=== PATIENT | male | born 1965 | race Caucasian/White ===

== ENCOUNTER 2021-03-31 22:52 | Emergency (ER) | payer MEDICAID ==
[~2021-03-31] VITALS: Ht 165.1 cm; Wt 63.5 kg
[2021-03-31 22:52] VITALS: BP 135/86
--- NOTE | 2021-03-31 22:52 | NUR ---
BIBA TO ER BED 3
--- NOTE | 2021-03-31 22:52 | NUR ---
BIBA FROM HOME, PT. VOMITING BLOOD FOR 1 HR. AFTER CHEMO TREATMENT. PT. RATES PAIN 0/10 AT THIS TIME. AAOX4. DENIES N/V/D; SKIN IS PINK/WARM/DRY; AAOX4 WITH EVEN AND STEADY GAIT; LUNGS CLEAR BL; HR EVEN AND REGULAR; PT DENIES ANY FEVER, CP, SOB, OR COUGH AT THIS TIME; VSS; PATIENT POSITIONED FOR COMFORT; HOB ELEVATED; BEDRAILS UP X2; BED DOWN. ER MADE AWARE OF PT STATUS. PMH: LUNG CANCER ALLERGIES: NONE
--- NOTE | 2021-03-31 23:01 | NUR ---
JOSEE BALL AT BEDSIDE FOR MEDICAL EXAMINATION.
--- NOTE | 2021-03-31 23:12 | NUR ---
XRAY AT BEDSIDE
--- NOTE | 2021-03-31 23:25 | NUR ---
LAB AT BEDSIDE
[2021-04-01] LABS: BASOPHILS # (AUTO) 0.1 K/uL (0.00-0.22); BASOPHILS % (AUTO) 0.7 % (0.0-2.0); EOSINOPHILS # (AUTO) 0.8 K/uL (0-0.4); EOSINOPHILS % (AUTO) 9.2 % (0.0-4.0); HEMATOCRIT 27.8 % (36-52); LYMPHOCYTES # (AUTO) 1.8 K/uL (2.0-11.5); LYMPHOCYTES % (AUTO) 21.4 % (20.5-51.1); MEAN CORPUSCULAR HEMOGLOBIN 29 pg (27-31); MEAN CORPUSCULAR HGB CONC 32 g/dL (33-37); MEAN CORPUSCULAR VOLUME 88.5 fL (80-94); MONOCYTES # (AUTO) 0.5 K/uL (0.8-1.0); NEUTROPHILS # (AUTO) 5.3 K/uL (1.8-7.7); NEUTROPHILS % (AUTO) 62.7 % (42.2-75.2); PLATELET COUNT (AUTO) 379 K/uL (140-450); RED BLOOD CELL COUNT(AUTO) 3.15 MIL/uL (4.20-6.10); WHITE BLOOD COUNT (AUTO) 8.5 K/uL (4.8-10.8)
[2021-04-01 00:08] LABS: ALBUMIN 2.7 g/dL (3.4-5.0); ANION GAP 11.5 (8-16); CARBON DIOXIDE 30.6 mmol/L (21-32); CREATININE 0.9 mg/dL (0.6-1.3); POTASSIUM 4.1 mmol/L (3.5-5.1); TOTAL BILIRUBIN 0.2 mg/dL (0.0-1.0)
[2021-04-01 00:17] LABS: PROTHROMBIN TIME 10.3 secs (10.8-13.4)
--- NOTE | 2021-04-01 00:35 | NUR ---
SAE VASQUEZ SAMPLE COLLECTED AND HANDED TO ANNABEL FROM LAB
--- NOTE | 2021-04-01 01:50 | NUR ---
PT. SP02 AT 89-90% ON ROOM AIR, PT. NOW ON NASAL CANNULA AT 1 L.
--- NOTE | 2021-04-01 02:00 | NUR ---
PT. SP02 AT 100% ON NASAL CANNULA, 1 L OF OXYGEN.
--- NOTE | 2021-04-01 02:28 | NUR ---
PT. AMBULATED TO BATHROOM WITH EVEN AND STEADY GAIT.
[2021-04-01] MEDS ORDERED: HYDROcodone/APAP 7.5/325 MG 1 TAB PO ONE (04:05)
--- NOTE | 2021-04-01 04:32 | NUR ---
PT. TO AWAIT FOR UNTIL 6AM TO PICK PT. UP.
--- NOTE | 2021-04-01 05:33 | NUR ---
PT. LAYING COMFORTABLY IN SUPINE POSITION. VOICES NO COMPLAINTS AT THIS TIME.
[2021-04-01 06:03] VITALS: BP 122/72
--- NOTE | 2021-04-01 06:03 | NUR ---
Patient discharged with v/s stable. Written and verbal after care instructions given and explained. Patient verbalized understanding. Ambulatory with steady gait. ID band removed. All questions addressed prior to discharge. Advised to follow up with PMD.
== END 2021-04-01 06:03 | disposition home or self-care (01) ==
LOC: MED 22:52
DX: R04.2 Hemoptysis (principal); Z20.822 Contact with and (suspected) exposure to COVID-19; C78.00 Secondary malignant neoplasm of unspecified lung; Z85.118 Personal history of other malignant neoplasm of bronchus and lung
CPT/HCPCS: 36415; 71045; 71270; 80053; 83880; 84484; 85025; 85610; 85730; 86886; 86900; 86901; 87426; 99285; Q9967

== ENCOUNTER 2021-04-09 17:16 | Emergency (ER) | payer MEDICAID ==
[~2021-04-09] VITALS: Ht 165.1 cm; Wt 59.1 kg
[2021-04-09 17:37] VITALS: BP 108/67
--- NOTE | 2021-04-09 17:41 | NUR ---
LOBBY. PT GIVEN URINE CUP
[2021-04-09 18:13] LABS: APPEARANCE,URINE CLEAR (CLEAR); BILIRUBIN,URINE 1+ (NEGATIVE); BLOOD, URINE 1+ (NEGATIVE); COLOR,URINE YELLOW (YELLOW); LEUKOCYTE ESTERASE ,URINE TRACE (NEGATIVE); NITRITE, URINE NEGATIVE (NEGATIVE); UGLUCOSE NEGATIVE (NEGATIVE)
[2021-04-09 18:26] LABS: WBC,URINE 0-5 /HPF (0-5)
[2021-04-09] MEDS ORDERED: cephALEXin 500 MG CAP PO ONE (19:05)
--- NOTE | 2021-04-09 19:17 | NUR ---
TO ER BED 3
--- NOTE | 2021-04-09 19:25 | NUR ---
PT. IS A 55 Y/O MALE THAT CAME INTO ED WITH C/O OF RECTAL PAIN. PT. STATES THAT THE RECTAL PAIN STARTED 3 DAYS AGO. WHEN ASKED TO DESCRIBE THE PAIN, PT. STATES "IT HURTS AROUND AND INSIDE. IT ALSO HURTS TO PEE AND I CAN'T DO BOTH AT THE SAME TIME." PT. STATES HE HAS TO WAIT FOR ONE OR THE OTHER WHEN HE URINATES OR HAS A BOWEL MOVEMENT. DENIES N/V/D, BUT ADMITS TO CONSTIPATION. SKIN IS PINK/WARM/DRY; AAOX4 WITH EVEN AND STEADY GAIT; HR EVEN AND REGULAR; PT DENIES ANY FEVER, CP, SOB, OR COUGH AT THIS TIME; VSS; PATIENT POSITIONED FOR COMFORT; HOB ELEVATED; BEDRAILS UP X2; BED DOWN. ER MADE AWARE OF PT STATUS. PMH: LUNG CANCER ALLERGIES: NKA
[2021-04-09] MEDS ORDERED: cefTRIAXone 1,000 MG in LIDOCAINE MPF 1% 2.1 ML IM ONE (20:20)
[2021-04-09] MEDS ORDERED: LIDO28CR2 TP (20:22)
[2021-04-09] MEDS ORDERED: DOXY-487 PO (20:22)
[2021-04-09] MEDS ORDERED: CEPH500C16 PO (20:22)
[2021-04-09] MEDS ORDERED: LIDOCAINE MPF 1% 5 ML ONE (20:24)
[2021-04-09] MEDS ORDERED: cefTRIAXone 1,000 MG VIAL ONE (20:24)
[2021-04-09 20:34] VITALS: BP 108/67
--- NOTE | 2021-04-09 20:34 | NUR ---
Patient discharged with v/s stable. Written and verbal after care instructions given and explained. Patient alert, oriented and verbalized understanding of instructions. Ambulatory with steady gait. All questions addressed prior to discharge. ID band removed. Patient advised to follow up with PMD. Rx of KEFLEX, DOXCYCLINE HYCLATE, PREPARATION H RAPID-LIDO CREAM given. Patient educated on indication of medication including possible reaction and side effects. Opportunity to ask questions provided and answered.
== END 2021-04-09 20:34 | disposition home or self-care (01) ==
LOC: MED 17:16
DX: K62.89 Other specified diseases of anus and rectum (principal); R10.9 Unspecified abdominal pain; Z85.118 Personal history of other malignant neoplasm of bronchus and lung; Z79.899 Other long term (current) drug therapy
CPT/HCPCS: 81001; 87086; 96372; 99283; J0696; J2001

== ENCOUNTER 2021-05-17 10:58 | Emergency (ER) | payer MEDICAID ==
[~2021-05-17] VITALS: Ht 165.1 cm; Wt 59.0 kg
[~2021-05-17 10:58] MED LIST: CEPH500C16 PO; DOXY-487 PO; LIDO28CR2 TP
[2021-05-17 11:05] VITALS: BP 117/76
--- NOTE | 2021-05-17 11:11 | NUR ---
PT AMBULATED TO ER BED 3 WITH A STEADY GAIT.
--- NOTE | 2021-05-17 11:24 | NUR ---
EMT AT PT BEDSIDE FOR EKG.
--- NOTE | 2021-05-17 11:26 | NUR ---
UNIX ANALYST AT PT BEDSIDE.
--- NOTE | 2021-05-17 11:32 | NUR ---
55 Y/O MALE C/O NON-PRODUCTIVE HACKING WET COUGH AND CHEST PAIN 03/29 DESCRIBES SHARP RADIATING TO HIS BACK X2DAYS. PT STATES FEELING SOB SINCE YESTERDAY. DENIES, FEVER, CHILLS. DENIES N/V. PMH: LUNG CANCER NKA
--- NOTE | 2021-05-17 12:28 | NUR ---
PT RESTING SUPINE, EYES CLOSED EASILY AROUSABLE, VSS, WILL CONTINUE TO MONITOR.
[2021-05-17] MEDS ORDERED: KETOROLAC 60 MG/2 ML VIAL IM ONE (12:40)
[2021-05-17] MEDS ORDERED: AZIT250T4 PO ×2 (14:01→17:34)
[2021-05-17] MEDS ORDERED: HYDR-5191 PO ×2 (14:01→17:34)
[2021-05-17 14:45] VITALS: BP 119/75
--- NOTE | 2021-05-17 14:45 | NUR ---
Patient discharged with v/s stable. Written and verbal after care instructions given [facility] and explained. Patient alert, oriented and verbalized understanding of instructions. Ambulatory with steady gait. All questions addressed prior to discharge. ID band removed. Patient advised to follow up with PMD. Rx of AZITHROMYCIN AND NORCO given. Patient educated on indication of medication including possible reaction and side effects. Opportunity to ask questions provided and answered.
== END 2021-05-17 14:45 | disposition home or self-care (01) ==
LOC: MED 10:58
DX: J18.9 Pneumonia, unspecified organism (principal); M54.9 Dorsalgia, unspecified; Z79.899 Other long term (current) drug therapy; Z85.118 Personal history of other malignant neoplasm of bronchus and lung
CPT/HCPCS: 71045; 93005; 96372; 99283; J1885; Q0092

== ENCOUNTER 2021-05-23 13:02 | Emergency (ER) | payer MEDICAID, OTHER ==
[~2021-05-23] VITALS: Ht 165.1 cm; Wt 59.0 kg
[~2021-05-23 13:02] MED LIST changes: +AZIT250T4 PO
[2021-05-23 13:17] VITALS: BP 126/67
--- NOTE | 2021-05-23 13:21 | NUR ---
PT TO AWAIT IN LOBBY
[2021-05-23 14:22] LABS: BASOPHILS % (AUTO) 0.3 % (0.0-2.0); EOSINOPHILS # (AUTO) 0.1 K/uL (0-0.4); EOSINOPHILS % (AUTO) 0.9 % (0.0-4.0); HEMATOCRIT 32.1 % (36-52); HEMOGLOBIN 10.4 g/dL (12.0-18.0); LYMPHOCYTES % (AUTO) 11.5 % (20.5-51.1); MEAN CORPUSCULAR HEMOGLOBIN 28 pg (27-31); MEAN CORPUSCULAR HGB CONC 33 g/dL (33-37); MEAN CORPUSCULAR VOLUME 87.4 fL (80-94); MONOCYTES # (AUTO) 0.6 K/uL (0.8-1.0); MONOCYTES % (AUTO) 7.2 % (1.7-9.3); NEUTROPHILS # (AUTO) 7.2 K/uL (1.8-7.7); NEUTROPHILS % (AUTO) 80.1 % (42.2-75.2); PLATELET COUNT (AUTO) 310 K/uL (140-450); RED BLOOD CELL COUNT(AUTO) 3.68 MIL/uL (4.20-6.10); RED CELL DISTRIBUTION WIDTH 17.6 % (11.6-13.7)
[2021-05-23 14:42] LABS: ALBUMIN 2.3 g/dL (3.4-5.0); ANION GAP 6.2 (8-16); CARBON DIOXIDE 34.1 mmol/L (21-32); CREATININE 0.8 mg/dL (0.6-1.3); POTASSIUM 4.3 mmol/L (3.5-5.1); TOTAL BILIRUBIN 0.2 mg/dL (0.0-1.0)
[2021-05-23 14:58] LABS: APPEARANCE,URINE CLEAR (CLEAR); BILIRUBIN,URINE NEGATIVE (NEGATIVE); BLOOD, URINE TRACE-I (NEGATIVE); COLOR,URINE YELLOW (YELLOW); LEUKOCYTE ESTERASE ,URINE NEGATIVE (NEGATIVE); NITRITE, URINE NEGATIVE (NEGATIVE); UGLUCOSE NEGATIVE (NEGATIVE)
[2021-05-23 15:26] LABS: RBC,URINE 0-5 /HPF (0-5); WBC,URINE 0-5 /HPF (0-5)
--- NOTE | 2021-05-23 15:37 | NUR ---
PT IN JC
--- NOTE | 2021-05-23 15:40 | NUR ---
DR SAID EXAMINING PT
[2021-05-23] MEDS ORDERED: DICYCLOMINE 10 MG CAP PO ONE (15:45)
[2021-05-23] MEDS ORDERED: FAMOTIDINE 20 MG TAB PO ONE (15:45)
[2021-05-23] MEDS ORDERED: MORPHINE SULFATE 4 MG/ML SYR IM ONE (15:45)
[2021-05-23] MEDS ORDERED: FAMO-92 PO (16:20)
[2021-05-23] MEDS ORDERED: MIRABULK PO (16:20)
[2021-05-23] MEDS ORDERED: ACET-5629 PO (16:20)
[2021-05-23 16:34] VITALS: BP 119/70
--- NOTE | 2021-05-23 16:34 | NUR ---
Patient discharged with v/s stable. Written and verbal after care instructions given and explained. Patient alert, oriented and verbalized understanding of instructions. Ambulatory with steady gait. All questions addressed prior to discharge. ID band removed. Patient advised to follow up with PMD. Rx of Percocet, Famotidine, Miralaxd given. Patient educated on indication of medication including possible reaction and side effects. Opportunity to ask questions provided and answered.
== END 2021-05-23 16:34 | disposition home or self-care (01) ==
LOC: MED 13:02
DX: K57.90 Diverticulosis of intestine, part unspecified, without perforation or abscess without bleeding (principal); D64.9 Anemia, unspecified; K92.1 Melena; C34.90 Malignant neoplasm of unspecified part of unspecified bronchus or lung
CPT/HCPCS: 36415; 74176; 80053; 81001; 83690; 85025; 96372; 99284; J2270

== ENCOUNTER 2021-06-15 10:26 | Inpatient (IN) | payer OTHER ==
[~2021-06-15] VITALS: Ht 165.1 cm; Wt 66.7 kg
[~2021-06-15 10:26] MED LIST changes: +ACET-5629 PO; +FAMO-92 PO; +MIRABULK PO
[2021-06-15 10:32] VITALS: BP 125/67
--- NOTE | 2021-06-15 10:42 | NUR ---
DR AMEZQUITA AT BEDSIDE EXAMINING PT
--- NOTE | 2021-06-15 11:00 | NUR ---
55 Y/O M BIB SELF FROM HOME, C/O BACK PAIN, CHEST PAIN, ABD PAIN, COUGH AND SOB FOR 3 DAYS. DENIES N/V/D. STATES 10 PAIN. DENIES ANY RECENT FEVER. PMH: PULMONARY CANCER NKA MED: TABRECTA 200MG, NORCO LAST DOSE 0700 TODAY (SOME RELIEF)
--- NOTE | 2021-06-15 11:10 | NUR ---
BLOOD LABS COLLECTED AND SENT TO LAB WITH ALFREDO AVALOS
[2021-06-15 11:43] LABS: PROTHROMBIN TIME 11.3 secs (10.8-13.4)
[2021-06-15 11:48] LABS: ANION GAP 11.5 (8-16); CARBON DIOXIDE 29.8 mmol/L (21-32); POTASSIUM 4.3 mmol/L (3.5-5.1); TOTAL BILIRUBIN 0.5 mg/dL (0.0-1.0)
[2021-06-15] MEDS ORDERED: MORPHINE SULFATE 4 MG/ML SYR IVP ONE (12:15)
--- NOTE | 2021-06-15 12:39 | NUR ---
CT CALLED FOR NEW IV. IV RT A/C DISCONTINUED.
[2021-06-15 12:43] LABS: BASOPHILS % (AUTO) 0.2 % (0.0-2.0); EOSINOPHILS % (AUTO) 0.3 % (0.0-4.0); HEMATOCRIT 26.3 % (36-52); HEMOGLOBIN 8.6 g/dL (12.0-18.0); LYMPHOCYTES # (AUTO) 0.9 K/uL (2.0-11.5); LYMPHOCYTES % (AUTO) 10.9 % (20.5-51.1); MEAN CORPUSCULAR HEMOGLOBIN 27 pg (27-31); MEAN CORPUSCULAR HGB CONC 33 g/dL (33-37); MONOCYTES # (AUTO) 0.5 K/uL (0.8-1.0); MONOCYTES % (AUTO) 5.8 % (1.7-9.3); NEUTROPHILS # (AUTO) 6.7 K/uL (1.8-7.7); NEUTROPHILS % (AUTO) 82.8 % (42.2-75.2); PLATELET COUNT (AUTO) 371 K/uL (140-450); RED BLOOD CELL COUNT(AUTO) 3.14 MIL/uL (4.20-6.10); RED CELL DISTRIBUTION WIDTH 17.3 % (11.6-13.7); WHITE BLOOD COUNT (AUTO) 8.1 K/uL (4.8-10.8)
--- NOTE | 2021-06-15 12:45 | NUR ---
IV 20GA LT A/C DONE. PT TOLERATED WELL
--- NOTE | 2021-06-15 12:52 | NUR ---
IVP PAINS MEDS GIVEN-NADR AT THIS TIME
--- NOTE | 2021-06-15 13:00 | NUR ---
pt having allergy reaction. sob. Lt eye swelling. dr singh called to bedside. benadryl IVP, IM 0.3 mg of epinephrine, and solu-medrol given.
[2021-06-15] MEDS ORDERED: EPINEPHrine PFS 0.1 MG/ML SYR IVP ONE (13:04)
[2021-06-15] MEDS ORDERED: methylPREDNISolone SS 125 MG in WATER STERILE 2 ML IM ONE (13:05)
[2021-06-15] MEDS ORDERED: diphenhydrAMINE 50 MG/ML VIAL IVP ONE (13:05)
[2021-06-15] MEDS ORDERED: methylPREDNISolone SS 125 MG/2 ML VIAL ONE (13:16)
[2021-06-15] MEDS ORDERED: WATER STERILE 10 ML MC ONE (13:16)
[2021-06-15] MEDS ORDERED: EPINEPHrine 1 MG/ML AMP SUBQ ONE (13:25)
[2021-06-15] MEDS ORDERED: KCL 20 MEQ/WATER INJ PREMIX 200 ML IV PRN (13:30)
[2021-06-15] MEDS ORDERED: LORazepam 1 MG TAB PO PRN (13:30)
[2021-06-15] MEDS ORDERED: MAGNESIUM OXIDE 400 MG TAB PO PRN (13:30)
[2021-06-15] MEDS ORDERED: MAG SULF 2000 MG/WATER PREMIX 50 ML IV PRN (13:30)
[2021-06-15] MEDS ORDERED: oxyCODONE/APAP 5/325 MG 1 TAB TAB PO PRN (13:30)
[2021-06-15] MEDS ORDERED: POLYETHYLENE GLYCOL 17 GM/PKT PO PRN (13:30)
[2021-06-15] MEDS ORDERED: ZOLPIDEM 5 MG TAB PO PRN (13:30)
[2021-06-15] MEDS ORDERED: POTASSIUM CHLORIDE 10 MEQ TABER PO PRN (13:30)
[2021-06-15] MEDS ORDERED: ONDANSETRON 4 MG/2 ML VIAL IVP PRN (13:30)
[2021-06-15] MEDS ORDERED: ACETAMINOPHEN 325 MG TAB PO PRN (13:30)
[2021-06-15] MEDS ORDERED: FAMOTIDINE 20 MG/2 ML VIAL IV ONE (14:55)
[2021-06-15] MEDS ORDERED: diphenhydrAMINE 50 MG/ML VIAL IVP PRN (14:55)
[2021-06-15] MEDS ORDERED: ALBUTEROL SULFATE/IPRATROPIU 3 ML SOL IH PRN (14:55)
--- NOTE | 2021-06-15 15:10 | NUR ---
Patient will be admitted to care of DR STEPHEN. Admited to TELEMETRY. Will go to room 125 - B. Belongings list completed. Report to LADI SWAN.
--- NOTE | 2021-06-15 15:15 | NUR ---
RECEIVED REPORT FROM ER NURSE, PT CAME FOR WORSENING OF COUGH AND CHEST PAIN. PT HAS LUNG CANCER. ALERT ORIENTED X 4 VERBALLY RESPONSIVE, AMBULATORY, SKIN IS INTACT IV ON LEFT AC 20 GAUGE, SALINE LOCK. RECEIVED PAIN MEDICATIONS IN ER.
--- NOTE | 2021-06-15 15:20 | NUR ---
RECEIVED PT FROM ER VIA MELVIN, DIRECTED THE PT TO THE ROOM, CHECKED VITAL, CONNECTED TO THE TELE MONITOR, MRSA SAMPLE TAKEN. CHANGED THE PT GOWN, BLANKET PROVIDED. CALL LIGHT IS IN REACH BED IN LOWER POSITION ALL SAFETY MEASURES ARE IN PLACED. PT DENIES PAIN AT THE MOMENT. PT HAS CHEMOTHERAPY MEDICATION TABRECTA 200 MG, NOTIFIED DR. MICHAUD, AND HANDED OVER THE MEDICATION TO THE PHARMACY. PT IS IN THE BED AT THE MOMENT. DOCTOR OBINNA ASSESSED THE PT. WILL CONTINUE TO MONITOR PT FOR WORSENING OF COUGH AND CHEST PAIN.
--- NOTE | 2021-06-15 16:31 | NUR ---
PT IS SINUS TACHY RECENT HEART RATE IS [address] MICHAUD AWAITING FOR FURTHER ORDERS. WILL CONTINUE TO MONITOR PT FOR SINUS TACHYCARDIA.
[2021-06-15 16:52] VITALS: BP 120/79
--- NOTE | 2021-06-15 17:00 | NUR ---
PT HEART RATE DECREASED TO 115, WILL CONTINUE TO MONITOR PT FOR SINUS TACHYCARDIA.
[2021-06-15] MEDS ORDERED: methylPREDNISolone SS 40 MG/ML VIAL IVP SCH (18:00)
[2021-06-15] MEDS ORDERED: CAPM200T PO (18:33)
[2021-06-15 20:00] VITALS: BP 122/75
[2021-06-15] MEDS: HYDROmorphone 1 MG/ML AMP IVP PRN (20:55)
[2021-06-15] MEDS: methylPREDNISolone SS 125 MG/2 ML VIAL IVP SCH (20:55)
[2021-06-15] MEDS: ALBUTEROL SULFATE/IPRATROPIU 3 ML SOL IH SCH (21:28)
--- NOTE | 2021-06-15 22:33 | NUR ---
PATIENT AWAKE ALERT HAS 02 ON 2 LITERS N/C SAT 99% LUNGS DIMINISH TO LISTEN ABDOMEN SOFT TO TOUCH VOIDING C/O OF BACK PAIN MEDICATED WITH DILAUDID 1 MG IVP AT 2054.. PATIENT WITH NO C/O OF CHEST PAIN AT THIS TIME.
[2021-06-16] VITALS (13 sets, daily range): BP systolic 103–133; BP diastolic 60–81
[2021-06-16] MEDS: ALBUTEROL SULFATE/IPRATROPIU 3 ML SOL IH SCH ×3 (00:44→13:47)
[2021-06-16] MEDS: HYDROmorphone 1 MG/ML AMP IVP PRN ×2 (01:07→05:50)
[2021-06-16] MEDS: methylPREDNISolone SS 125 MG/2 ML VIAL IVP SCH ×3 (05:01→20:48)
[2021-06-16 06:08] LABS: HEMATOCRIT 25.4 % (36-52); HEMOGLOBIN 8.1 g/dL (12.0-18.0); LYMPHOCYTES # (AUTO) 0.5 K/uL (2.0-11.5); LYMPHOCYTES % (AUTO) 3.8 % (20.5-51.1); MEAN CORPUSCULAR HEMOGLOBIN 27 pg (27-31); MEAN CORPUSCULAR HGB CONC 32 g/dL (33-37); MEAN CORPUSCULAR VOLUME 83.8 fL (80-94); MONOCYTES # (AUTO) 0.2 K/uL (0.8-1.0); MONOCYTES % (AUTO) 1.8 % (1.7-9.3); NEUTROPHILS # (AUTO) 12.5 K/uL (1.8-7.7); NEUTROPHILS % (AUTO) 94.4 % (42.2-75.2); PLATELET COUNT (AUTO) 335 K/uL (140-450); RED BLOOD CELL COUNT(AUTO) 3.03 MIL/uL (4.20-6.10); RED CELL DISTRIBUTION WIDTH 17.2 % (11.6-13.7); WHITE BLOOD COUNT (AUTO) 13.2 K/uL (4.8-10.8)
[2021-06-16 06:09] LABS: ALBUMIN 1.9 g/dL (3.4-5.0); ANION GAP 10.8 (8-16); CARBON DIOXIDE 28.9 mmol/L (21-32); CHOL/HDL RATIO 4.6 (1-4.5); CREATININE 0.8 mg/dL (0.6-1.3); POTASSIUM 4.7 mmol/L (3.5-5.1); TOTAL BILIRUBIN 0.2 mg/dL (0.0-1.0)
--- NOTE | 2021-06-16 07:58 | NUR ---
RECEIVED REPORT FROM NIGHT NURSE, PT IS IN THE BED AT THE MOMENT, ALERT ORIENTED X 4 VERBALLY RESPONSIVE, DENIES PAIN AND DISCOMFORT. SINUS RHYTHM ON CARDIAC DIET, IV ACCESS ON L AC 20 GAUGE SALINE LOCK. SKIN INTACT. DENIES CHEST PAIN AND NO COUGH AT THE MOMENT. POC DISCUSSED WILL CONTINUE TO FOLLOW.
[2021-06-16] MEDS: DOCUSATE SODIUM 100 MG GELCAP PO SCH (08:46)
[2021-06-16] MEDS: FAMOTIDINE 20 MG TAB PO SCH (08:47)
--- NOTE | 2021-06-16 09:06 | NUR ---
PATIENT HAS BEEN SCREENED AND CATEGORIZED MODERATE NUTRITION RISK. PATIENT WILL BE SEEN WITHIN 3-5 DAYS OF ADMISSION. 06/18/21 06/20/[address]
[2021-06-16] MEDS ORDERED: ACET-5629 PO (09:31)
[2021-06-16] MEDS ORDERED: PRED20TA5 PO (09:31)
--- NOTE | 2021-06-16 09:51 | NUR ---
PT IS TACHY CARDIAC ON THE MONITOR, CURRENT HEART RATE IS 151, ASSESSED PT HE IS EATING BREAKFAST, DENIES CHEST PAIN. NOTIFIED DR. MICHAUD AT [phone] TIME 09:50 AM. AWAITING FOR FURTHER ORDERS. WILL CONTINUE TO MONITOR PT FOR TACHYCARDIA.
--- NOTE | 2021-06-16 11:14 | NUR ---
NOTIFY DR MCGILL ABOUT ELEVATED HEART RATE, RECEIVED NEW ORDER OF EKG, INFORMED RT. WILL NOTIFY MD ABOUT RESULTS.
--- NOTE | 2021-06-16 11:17 | NUR ---
PT IS IN THE BED SLEEPING DENIES AT THE MOMENT, RT AMRIK IS PRESENT AT THE BED SIDE PERFORMING EKG ON PT.
--- NOTE | 2021-06-16 11:28 | NUR ---
EKG DONE IT REFLECTS A FIB HR [address] MCGILL ON PHONE [phone] TIME 11:27. AWAITING FOR FURTHER ORDERS.
[2021-06-16] MEDS: METOPROLOL 25 MG TAB PO SCH ×2 (12:27→20:51)
--- NOTE | 2021-06-16 12:32 | NUR ---
RECEIVED NEW ORDER OF METOPROLOL 25 MG TO CONTROL HEART RATE, CARRIED OUT, PT RECEIVED IT. NOTIFIED MD ABOUT DISCHARGE ORDER, WILL HOLD DISCHARGE PER MD ORDER. NOTIFIED WELDING MACHINE OPERATOR FRICTION ABOUT THE DC HOLD. WILL CONTINUE TO MONITOR PT.
--- NOTE | 2021-06-16 14:00 | NUR ---
PT'S HEART RATE IS BETWEEN 140-15O PT DENIES CHEST PAIN.
--- NOTE | 2021-06-16 14:53 | NUR ---
DC PLANNIN YRS OLD MALE PATIENT WAS ADMITTED FROM HOME WITH A DX OF TUMOR COUGH. PATIENT HAS A SMALL CELL CA ON ORAL CHEMOTHERAPY. PT IS WITH DR VILLANUEVA ONCOLOGIST. LEFT CXR AND CT CHEST SHOWED EXTENSIVE EXPANSION MASS AND CONSOLIDATION. ADMINISTERED IVF, IV ABX ROCEPHIN , IV SOLU-MEDROL . CONSULTED WITH PULNISSA AND DR LAGUERRE ONCOLOGIST. DC PLAN TO GO HOME WHEN STABLE. CM TO FOLLOW Addendum: 06/17/21 at 1511 by Anali Foster RN DC PLANNING: PT HR 150 NEW ONSET OF A-FIB , TRANSFERRED TO ICU FOR AMIODARONE DRIP SEN BY SEARCH ENGINE MARKETING SPECIALIST . AFIB RVR RESOLVED. CONTINUE MONITORING. DC PLAN TO GO HOME WHEN STABLE CM TO FOLLOW.
[2021-06-16] MEDS ORDERED: AMIODARONE 150 MG in DEXTROSE 5% 100 ML IV SCH (15:39)
[2021-06-16] MEDS ORDERED: APIXABAN 2.5 MG TAB PO SCH (15:41)
[2021-06-16] MEDS ORDERED: SHARK OIL/PHENYLEPHRINE 60 GM TUBE TP PRN (15:50)
--- NOTE | 2021-06-16 15:55 | NUR ---
RECEIVED VERBAL ORDER FOR TRANSFER TO ICU FOR AMIODARONE DRIP FROM DR. GAITAN. HR IS ELEVATED; AIFB ON TELE MONITOR. MANAGEMENT TRAINEE NOTIFIED. ICU CHARGE NURSE NOTIFIED.
--- NOTE | 2021-06-16 16:00 | NUR ---
GAVE REPORT TO THE ICU NURSE, AND NOTIFY HER THAT PT HAS UNCONTROLLED HEART RATE AND FA FIB. PT IS ALERT ORIENTED X 4 VERBALLY RESPONSIVE, IV ACCESS ON LEFT AC SALINE LOCK. CARDIAC DIET. SKIN INTACT.
--- NOTE | 2021-06-16 16:21 | NUR ---
TRANSFERRED PT TO THE ICU DUE TO UNCONTROLLED HEART RATE AND A FIB. PT DENIES PAIN AT THE MOMENT, NO SOB NOTED. GAVE REPORT TO THE NURSE.
[2021-06-16] MEDS: AMIODARONE 450 MG in DEXTROSE 5% 250 ML IV SCH ×2 (17:06→23:12)
--- NOTE | 2021-06-16 19:10 | NUR ---
RECEIVED PATIENT FROM AM SHIFT NURSE FOR CONTINUITY OF CARE. AAOX4. RESPIRATIONS EVEN, UNLABORED. NO S/S RESPIRATORY DISTRESS. S1/S2 AUSCULTATED. AFIB ON MONITOR. NO C/O PAIN. SKIN WARM, DRY. RIGHT CHEST PORT NOTED, PER PATIENT IS IT HIS CHEMOTHERAPY ACCESS. IV SITE TO LEFT AC 20G PATENT/INTACT, INFUSING AMIODARONE WELL. ABDOMEN SOFT, NONTENDER, NONDISTENDED. BOWEL SOUNDS ACTIVE X4 QUADRANTS. PATIENT IS CONTINENT OF B/B. CLOSE MONITORING BY ALL STAFF.
[2021-06-16] MEDS: APIXABAN 2.5 MG TAB PO SCH (20:49)
[2021-06-16] MEDS ORDERED: METOPROLOL 25 MG TAB PO SCH (21:00)
--- NOTE | 2021-06-16 21:45 | NUR ---
PATIENT RESTING IN BED COMFORTABLY. NO S/S RESPIRATORY DISTRESS. C/O PAIN TO LOWER LEFT ABDOMEN, WILL MEDICATE ORDERED. PATIENT IS CLEAN/DRY. CLOSE MONITORING BY ALL STAFF.
[2021-06-16] MEDS: HYDROcodone/APAP 5/325 MG 1 TAB TAB PO PRN (21:49)
--- NOTE | 2021-06-16 23:10 | NUR ---
NO S/S RESPIRATORY DISTRESS. AMIODARONE TITRATED ORDERED. AFIB ON MONITOR. NO C/O PAIN. PATIENT IS CLEAN/DRY. CLOSE MONITORING BY ALL STAFF.
[2021-06-17] VITALS (20 sets, daily range): BP systolic 98–127; BP diastolic 55–79
--- NOTE | 2021-06-17 01:09 | NUR ---
PATIENT IS ASLEEP. NO S/S RESPIRATORY DISTRESS. CLOSE MONITORING BY ALL STAFF.
[2021-06-17] MEDS: AMIODARONE 450 MG in DEXTROSE 5% 250 ML IV SCH (02:24)
--- NOTE | 2021-06-17 03:35 | NUR ---
NO S/S RESPIRATORY DISTRESS. PATIENT IS SLEEPING WELL.
[2021-06-17] MEDS: methylPREDNISolone SS 125 MG/2 ML VIAL IVP SCH (05:07)
[2021-06-17 05:20] LABS: HEMATOCRIT 27.9 % (36-52); HEMOGLOBIN 8.8 g/dL (12.0-18.0); LYMPHOCYTES # (AUTO) 0.6 K/uL (2.0-11.5); LYMPHOCYTES % (AUTO) 2.5 % (20.5-51.1); MEAN CORPUSCULAR HEMOGLOBIN 26 pg (27-31); MEAN CORPUSCULAR HGB CONC 32 g/dL (33-37); MEAN CORPUSCULAR VOLUME 83.4 fL (80-94); MONOCYTES # (AUTO) 0.6 K/uL (0.8-1.0); MONOCYTES % (AUTO) 2.4 % (1.7-9.3); NEUTROPHILS # (AUTO) 21.8 K/uL (1.8-7.7); NEUTROPHILS % (AUTO) 95.1 % (42.2-75.2); PLATELET COUNT (AUTO) 362 K/uL (140-450); RED BLOOD CELL COUNT(AUTO) 3.35 MIL/uL (4.20-6.10); RED CELL DISTRIBUTION WIDTH 17.5 % (11.6-13.7)
[2021-06-17 05:37] LABS: ALBUMIN 1.9 g/dL (3.4-5.0); ANION GAP 9.9 (8-16); CARBON DIOXIDE 29.4 mmol/L (21-32); CREATININE 0.9 mg/dL (0.6-1.3); PHOSPHORUS 3.5 mg/dL (2.5-4.9); POTASSIUM 5.3 mmol/L (3.5-5.1); TOTAL BILIRUBIN 0.2 mg/dL (0.0-1.0)
--- NOTE | 2021-06-17 05:38 | NUR ---
ALL NEEDS ANTICIPATED AND MET. NO S/S RESPIRATORY DISTRESS. NO C/O PAIN. PATIENT IS CLEAN/DRY. CLOSE MONITORING BY ALL STAFF.
--- NOTE | 2021-06-17 07:20 | NUR ---
Assumed pt care met him awake alert oriented x4, on room air , moves all extremities denies pain no acute distress noted education on care plan and pt verbalized understanding. On AMIODARONE drip hr controlled rate AFIB on the monitor. Call light at reach bed in low position, pt ambulatory to bedside and will continue to monitor and treat.
[2021-06-17] MEDS: FAMOTIDINE 20 MG TAB PO SCH (09:34)
[2021-06-17] MEDS: DOCUSATE SODIUM 100 MG GELCAP PO SCH (09:34)
[2021-06-17] MEDS: METOPROLOL 25 MG TAB PO SCH ×2 (09:34→21:29)
[2021-06-17] MEDS: APIXABAN 2.5 MG TAB PO SCH ×2 (09:35→21:42)
[2021-06-17] MEDS ORDERED: SODIUM POLYSTYRENE 15 GM/60 ML UDBTL PO SCH (10:30)
[2021-06-17] MEDS: methylPREDNISolone SS 40 MG/ML VIAL IVP SCH ×2 (12:11→21:00)
--- NOTE | 2021-06-17 13:00 | NUR ---
Change of shift report to Kartik SWAN as at this time pt awake alert oriented x4 vitals stable no changes in pt's condition. PT on PO chemo and precaution observed all through the shift
--- NOTE | 2021-06-17 16:30 | NUR ---
pt potassium was 5.3 Kayexalate given and pt had bowel movement later rechecked lab in AM
[2021-06-17] MEDS: AMIODARONE 200 MG TAB PO SCH ×2 (17:03→21:28)
--- NOTE | 2021-06-17 17:30 | NUR ---
@1700 Amiodarone drip turned off and 400mg PO given no adverse reaction noted. Dean and Dr Smith notified and order received to transfer pt to Telemetry.
--- NOTE | 2021-06-17 23:27 | NUR ---
PATIENT TO FLOOR 1930 TO ROOM 125 B ALERT UP TO BATH ROOM ON ROOM AIR SAT 98%. lungs diminish no c/o. abdomen soft voiding in bathroom . has hl in right wrist 22 ga and left f.a 22 ga both ivs ok. no signs of distress. had 2d echo at 1999 see notes.
[2021-06-17] MEDS: HYDROcodone/APAP 5/325 MG 1 TAB TAB PO PRN (23:53)
[2021-06-18] VITALS: BP 126/65
[2021-06-18 04:00] VITALS: BP 128/66
[2021-06-18] MEDS: methylPREDNISolone SS 40 MG/ML VIAL IVP SCH (05:20)
--- NOTE | 2021-06-18 05:21 | NUR ---
patient c/o of pain in side and back medicated with norco 5/325 mg at 2355. 0030 patient sleep no signs of pain.
[2021-06-18 05:48] LABS: BASOPHILS % (AUTO) 0.1 % (0.0-2.0); HEMATOCRIT 26.6 % (36-52); HEMOGLOBIN 8.4 g/dL (12.0-18.0); LYMPHOCYTES # (AUTO) 0.7 K/uL (2.0-11.5); MEAN CORPUSCULAR HEMOGLOBIN 27 pg (27-31); MEAN CORPUSCULAR HGB CONC 32 g/dL (33-37); MEAN CORPUSCULAR VOLUME 84.2 fL (80-94); MONOCYTES # (AUTO) 0.7 K/uL (0.8-1.0); MONOCYTES % (AUTO) 3.7 % (1.7-9.3); NEUTROPHILS # (AUTO) 16.8 K/uL (1.8-7.7); NEUTROPHILS % (AUTO) 92.2 % (42.2-75.2); PLATELET COUNT (AUTO) 340 K/uL (140-450); RED BLOOD CELL COUNT(AUTO) 3.16 MIL/uL (4.20-6.10); RED CELL DISTRIBUTION WIDTH 17.2 % (11.6-13.7); WHITE BLOOD COUNT (AUTO) 18.3 K/uL (4.8-10.8)
[2021-06-18 06:04] LABS: ALBUMIN 1.7 g/dL (3.4-5.0); ANION GAP 9.8 (8-16); CARBON DIOXIDE 30.2 mmol/L (21-32); CREATININE 0.9 mg/dL (0.6-1.3); MAGNESIUM 1.8 mg/dL (1.8-2.4); PHOSPHORUS 4.1 mg/dL (2.5-4.9); TOTAL BILIRUBIN 0.3 mg/dL (0.0-1.0)
--- NOTE | 2021-06-18 07:20 | NUR ---
RECEIVED CHANGE OF SHIFT REPORT FROM NIGHT NURSE AT BEDSIDE FOR CONTINUITY OF CARE. REVIEWED AND WILL CONTINUE WITH POC. PT ASLEEP DURING BEDSIDE REPORT. NURSE REPORTS WHEN PT IS AWAKE PT IS AA&OX4 AND AMBULATORY. PT ON RA BREATHING NORMAL AND UNLABORED. NURSE REPORTS PT WAS ST ON TELE. SKIN IS WARM, DRY, AND INTACT. LAC 22G AND R-WRIST 22G IV IS PATENT AND INTACT.
[2021-06-18 08:00] VITALS: BP 97/61
[2021-06-18] MEDS: METOPROLOL 25 MG TAB PO SCH (09:00)
--- NOTE | 2021-06-18 09:15 | NUR ---
PT CONDITION IS STABLE. PT IS AWAKE AND ON TELEPHONE CALL WITH FAMILY MEMBER. PT DENIES PAIN OR DISCOMFORT AT THIS TIME. WILL CONTINUE WITH FREQ ROUNDING.
[2021-06-18] MEDS: FAMOTIDINE 20 MG TAB PO SCH (09:49)
[2021-06-18] MEDS: AMIODARONE 200 MG TAB PO SCH (09:50)
[2021-06-18] MEDS: DOCUSATE SODIUM 100 MG GELCAP PO SCH (09:50)
[2021-06-18] MEDS: APIXABAN 2.5 MG TAB PO SCH (09:55)
[2021-06-18] MEDS: HYDROcodone/APAP 5/325 MG 1 TAB TAB PO PRN (10:07)
--- NOTE | 2021-06-18 10:07 | NUR ---
PT COMPLAINED OF BACK PAIN 02/27. ADMINISTERED NORCO PRN FOR PAIN. WILL REASSESS IN 1 HR.
[2021-06-18] MEDS ORDERED: LEVO750T51 PO (10:32)
[2021-06-18 10:45] VITALS: BP 97/61
--- NOTE | 2021-06-18 11:07 | NUR ---
PT CONDITION IS STABLE. PAIN REASSESSMENT COMPLETED. PT STATES PAIN IS TOLERABLE 2/10. WILL CONTINUE MONITORING PT.
[2021-06-18 12:00] VITALS: BP 95/57
--- NOTE | 2021-06-18 13:10 | NUR ---
PT HAS FAMILY AT BEDSIDE. PT DENIES PAIN OR DISCOMFORT AT THIS TIME. PT AWARE OF DISCHARGE ORDER. WILL PREPARE THE PAPERWORK FOR PT TO SIGN.
[2021-06-18] MEDS ORDERED: AMIO200T10 PO (13:21)
[2021-06-18] MEDS ORDERED: APIX2.5 PO (13:21)
--- NOTE | 2021-06-18 15:25 | NUR ---
PT DISCHARGE COMPLETE. PT WALKED OUT OF FACILITY TO PRIVATE VEHICLE WITH FAMILY. PT CONDITION IS STABLE UPON DISCHARGE. IV HAS BEEN DISCONTINUED AND ID BAND WAS REMOVED.
[2021-06-18] MEDS ORDERED: methylPREDNISolone SS 40 MG/ML VIAL IVP SCH (21:00)
--- NOTE | 2021-06-20 13:19 | NUR ---
DIVINE HURD CALL PATIENT'S PCP OFFICE TO MAKE PATIENT'S FOLLOW UP APPOINTMENT. SPOKE TO NACHO WHO WAS ABLE TO MAKE PATIENT'S FOLLOW UP APPOINTMENT ON THE ONLY AVAILABLE FOR 06/25/2021 AT 11:[address] [facility] [id number]. VICKEY CONTACTED PATIENT TO INFORM HIM OF APPOINTMENT SCHEDULED. PATIENT STATED THAT HE IS AWARE AND THAT THE OFFICE HAS CALL HIM TO CONFIRM APPOINTMENT AND INFORMATION. PATIENT THANKED THIS POLICY WRITER TYPIST FOR THE CALL.
[2021-06-22] MEDS ORDERED: AMIODARONE 200 MG TAB PO SCH (09:00)
== END 2021-06-18 14:25 | disposition home or self-care (01) | DRG 136 ==
LOC: MED 10:26 → MMU 13:36 → MIC 06-16 16:20 → MMU 06-17 19:56
PROVIDERS: ADMIT Hospitalist; ATTEND Hospitalist
DX: C34.90 Malignant neoplasm of unspecified part of unspecified bronchus or lung (principal); E44.1 Mild protein-calorie malnutrition; T88.6XXA Anaphylactic reaction due to adverse effect of correct drug or medicament properly administered, initial encounter; Z60.2 Problems related to living alone; Y84.8 Other medical procedures as the cause of abnormal reaction of the patient, or of later complication, without mention of misadventure at the time of the procedure; T49.0X5A Adverse effect of local antifungal, anti-infective and anti-inflammatory drugs, initial encounter; I48.91 Unspecified atrial fibrillation; Z91.041 Radiographic dye allergy status; Z87.01 Personal history of pneumonia (recurrent); Z79.2 Long term (current) use of antibiotics; Z79.899 Other long term (current) drug therapy; Y92.89 Other specified places as the place of occurrence of the external cause
CPT/HCPCS: 36415; 71045; 71275; 80053; 83036; 83735; 83880; 84100; 84443; 84484; 85025; 85610; 85730; 87081; 93005; 94640; 96372; 96374; 96375; 99291; J0171; J0282; J0696; J1170; J1200; J2270; J2920; J2930; J3490; J7060; Q9967

== ENCOUNTER 2021-06-26 05:07 | Inpatient (IN) | payer MEDICAID, OTHER ==
[~2021-06-26] VITALS: Ht 165.1 cm; Wt 63.5 kg
[~2021-06-26 05:07] MED LIST changes: +AMIO200T10 PO; +APIX2.5 PO; -AZIT250T4 PO; +CAPM200T PO; -CEPH500C16 PO; -DOXY-487 PO; +LEVO750T51 PO; -LIDO28CR2 TP; +PRED20TA5 PO
[2021-06-26 05:16] VITALS: BP 124/74
--- NOTE | 2021-06-26 05:16 | NUR ---
to bed ambulatory
--- NOTE | 2021-06-26 05:20 | NUR ---
BIB SON, PT. IS A 55 Y/O MALE THAT CAME INTO ED WITH C/O OF ABDOMINAL PAIN. PT. DESCRIBES PAIN CONSTANT SHARP PAIN THAT STARTED 3 DAYS AGO. PT. ALSO STATES THAT HE HAS MID-BACK PAIN. PT. STATES "ON WEDNESDAY OR WEDNESDAY I FELL A LITTLE BUT I CAUGHT MYSELF ON THE SIDE OF THE CAR." UPON ASSESSMENT, PT. HAS BLE NON-PITTING EDEMA. PT. RATES PAIN AT 10/10 ON THE PAIN SCALE AT THIS TIME. DENIES LOC. DENIES DIARRHEA, ADMITS TO N/V/CONSTIPATION. SKIN IS PINK/WARM/DRY; AAOX4 WITH EVEN AND STEADY GAIT; HR EVEN AND REGULAR; PT DENIES ANY FEVER, CP, SOB, OR COUGH AT THIS TIME; VSS; PATIENT POSITIONED FOR COMFORT; HOB ELEVATED; BEDRAILS UP X2; BED DOWN. ER MD MADE AWARE OF PT STATUS. PMH: LUNG CANCER ALLERGIES: IODINE, IV CONTRAST
--- NOTE | 2021-06-26 06:08 | NUR ---
EKG AT BEDSIDE
--- NOTE | 2021-06-26 06:10 | NUR ---
DELAY IN URINE SAMPLE DUE TO PT. STATING "I CAN'T GO YET."
[2021-06-26 06:11] LABS: BASOPHILS % (AUTO) 0.2 % (0.0-2.0); HEMATOCRIT 28.5 % (36-52); HEMOGLOBIN 9.1 g/dL (12.0-18.0); LYMPHOCYTES # (AUTO) 0.9 K/uL (2.0-11.5); LYMPHOCYTES % (AUTO) 5.6 % (20.5-51.1); MEAN CORPUSCULAR HEMOGLOBIN 26 pg (27-31); MEAN CORPUSCULAR HGB CONC 32 g/dL (33-37); MEAN CORPUSCULAR VOLUME 81.7 fL (80-94); MONOCYTES # (AUTO) 0.8 K/uL (0.8-1.0); MONOCYTES % (AUTO) 5.2 % (1.7-9.3); NEUTROPHILS # (AUTO) 13.8 K/uL (1.8-7.7); PLATELET COUNT (AUTO) 298 K/uL (140-450); RED BLOOD CELL COUNT(AUTO) 3.49 MIL/uL (4.20-6.10); RED CELL DISTRIBUTION WIDTH 18.4 % (11.6-13.7); WHITE BLOOD COUNT (AUTO) 15.6 K/uL (4.8-10.8)
[2021-06-26 06:27] LABS: ALBUMIN 1.9 g/dL (3.4-5.0); ANION GAP 12.4 (8-16); CREATININE 0.9 mg/dL (0.6-1.3); POTASSIUM 4.4 mmol/L (3.5-5.1); TOTAL BILIRUBIN 1.1 mg/dL (0.0-1.0)
--- NOTE | 2021-06-26 06:27 | NUR ---
PT. TAKEN TO CT VIA W/C
--- NOTE | 2021-06-26 06:37 | NUR ---
PT. BACK FROM CT. VIA W/C
[2021-06-26 06:41] LABS: PROTHROMBIN TIME 11.9 secs (10.8-13.4)
--- NOTE | 2021-06-26 07:08 | NUR ---
REPORT AND TRANSFER OF CARE ENDORSED TO SOSA MANJARREZ.
--- NOTE | 2021-06-26 07:38 | NUR ---
PT PROVIDED RN WITH URINE SAMPLE, WALKED TO LAB
[2021-06-26 08:22] LABS: APPEARANCE,URINE CLEAR (CLEAR); BILIRUBIN,URINE 2+ (NEGATIVE); BLOOD, URINE NEGATIVE (NEGATIVE); COLOR,URINE ORANGE (YELLOW); LEUKOCYTE ESTERASE ,URINE NEGATIVE (NEGATIVE); NITRITE, URINE NEGATIVE (NEGATIVE); PH,URINE 5.5 (5.0-9.0); UGLUCOSE NEGATIVE (NEGATIVE)
[2021-06-26] MEDS ORDERED: MORPHINE SULFATE 4 MG/ML SYR IVP ONE (08:25)
[2021-06-26] MEDS ORDERED: ONDANSETRON 4 MG/2 ML VIAL IVP ONE ×2 (08:25→10:55)
[2021-06-26 08:34] LABS: RBC,URINE 0-5 /HPF (0-5); WBC,URINE 0-5 /HPF (0-5)
[2021-06-26] MEDS ORDERED: CAPM200T PO (08:36)
--- NOTE | 2021-06-26 08:43 | NUR ---
PT RESTING IN BED COMFORTABLY, VSS
[2021-06-26] MEDS ORDERED: MORPHINE SULFATE 2 MG/ML SYR IVP PRN ×2 (09:10→09:30)
[2021-06-26] MEDS ORDERED: ACETAMINOPHEN 325 MG TAB PO PRN (09:10)
[2021-06-26] MEDS ORDERED: HYDROcodone/APAP 7.5/325 MG 1 TAB PO PRN ×2 (09:10→09:30)
[2021-06-26] MEDS ORDERED: SODIUM PHOS / POTASSIUM PHOS 1 PKT PDR PO PRN ×2 (09:10→09:30)
[2021-06-26] MEDS ORDERED: MAGNESIUM OXIDE 400 MG TAB PO PRN ×2 (09:10→09:30)
[2021-06-26] MEDS ORDERED: DOCUSATE SODIUM 100 MG GELCAP PO PRN ×2 (09:10→09:30)
[2021-06-26] MEDS ORDERED: POTASSIUM CHLORIDE 10 MEQ TABER PO PRN ×2 (09:10→09:30)
[2021-06-26] MEDS ORDERED: ONDANSETRON 4 MG/2 ML VIAL IM/IVP PRN (09:10)
--- NOTE | 2021-06-26 09:15 | NUR ---
PATIENT ADMITTED TO TELE AT THIS TIME, PATIENT REMAINS IN ER
[2021-06-26] MEDS ORDERED: FURO-572 PO (09:17)
[2021-06-26] MEDS ORDERED: ONDA-24 PO (09:17)
[2021-06-26] MEDS ORDERED: DOCU-2 PO (09:17)
[2021-06-26] MEDS ORDERED: MSCON15 PO (09:17)
--- NOTE | 2021-06-26 09:58 | NUR ---
MRSA SWAB COLLECTED AND SENT TO LAB
[2021-06-26 10:07] LABS: MAGNESIUM 1.9 mg/dL (1.8-2.4); PHOSPHORUS 3.2 mg/dL (2.5-4.9)
--- NOTE | 2021-06-26 12:30 | NUR ---
PATIENT COMPLAINING OF 10/10 PAIN TO ABD AREA, NORCO ADMINISTERED PRN
[2021-06-26] MEDS: HYDROcodone/APAP 7.5/325 MG 1 TAB PO PRN ×2 (12:31→22:12)
[2021-06-26] MEDS ORDERED: POLYETHYLENE GLYCOL 17 GM/PKT PO PRN (15:30)
--- NOTE | 2021-06-26 15:39 | NUR ---
Patient will be admitted to care of [facility]. Admited to TELE. Will go to room 125B. Belongings list completed. Report to PRANAV SWAN .
[2021-06-26] MEDS: MORPHINE SULFATE 2 MG/ML SYR IVP PRN (16:22)
[2021-06-26] MEDS ORDERED: CAPMATINIB HYDROCHLORIDE 200 MG PO SCH (17:00)
--- NOTE | 2021-06-26 17:05 | NUR ---
Patient arrived on unit via [place]. Patient complained of lower left abdominal pain and constipation. Breathing is easy, unlabored and no coughing. Skin is intact but has bilateral feet edema. Abdomen is soft but tender to touch. Able to ambulate independently. Safety co measures in place with call light within reach, bed lowered and bed side table within reach
[2021-06-26] MEDS: ONDANSETRON 4 MG/2 ML VIAL IM/IVP PRN (18:29)
--- NOTE | 2021-06-26 19:05 | NUR ---
RECEIVED BEDSIDE REPORT FROM DAY SHIFT NURSE. PATIENT IS AWAKE, ALERT, AND COOPERATIVE. RESPIRATION EVEN UNLABORED ON ROOM AIR. NO DISTRESS NOTED. DENIES PAIN. SKIN IS WARM AND DRY. IV PATENT AND INTACT. PLAN OF CARE WAS DISCUSSED, ALL SAFETY MEASURES IN PLACE. BED IS AT LOW POSITION, CALL LIGHT WITHIN REACH. WILL CONTINUE TO MONITOR
[2021-06-26 20:00] VITALS: BP 114/67
--- NOTE | 2021-06-26 20:00 | NUR ---
INITIAL ASSESSMENT DONE. RIGHT UPPER CHEST MEDIPORT NOTED. WILL CONTINUE TO MONITOR
[2021-06-26] MEDS: FAMOTIDINE 20 MG/2 ML VIAL IV SCH (20:22)
[2021-06-26] MEDS: APIXABAN 2.5 MG TAB PO SCH (20:22)
[2021-06-26] MEDS: AMIODARONE 200 MG TAB PO SCH (20:23)
[2021-06-26] MEDS: COMMUNICATION ORDER MC SCH (20:33)
[2021-06-26] MEDS: PATIENTS OWN TABLET PO SCH (20:33)
--- NOTE | 2021-06-26 20:34 | NUR ---
UNABLE TO SCAN PATIENT OWNS MEDICATION TABRECTA, MANUALLY PUT IT IN WITH WITNESS UMER SWAN
[2021-06-26] MEDS ORDERED: PATIENTS OWN TABLET PO SCH (21:00)
--- NOTE | 2021-06-26 22:12 | NUR ---
PATIENT COMPLAINED OF CHEST PAIN ON THE LEFT SIDE NON-RADIATING. VITALS WERE TAKEN, PATIENT HAS A HISTORY OF LUNG CA. PRN PAIN MEDS GIVEN PER ORDER. WILL CONTINUE TO MONITOR
--- NOTE | 2021-06-26 22:40 | NUR ---
PATIENT IV INFILTRATED. INSERTED A NEW ONE ON THE RIGHT WRIST 22G, PATIENT TOLERATED IT WELL. WILL CONTINUE TO MONITOR,.
[2021-06-27] VITALS (7 sets, daily range): BP systolic 92–118; BP diastolic 65–79
--- NOTE | 2021-06-27 00:30 | NUR ---
VITALS WERE TAKEN. PATIENT COMPLAINED OF CHEST AND BACK PAIN 10/10. PRN PAIN MEDS GIVEN PER ORDER. WILL CONTINUE TO MONITOR
[2021-06-27] MEDS: MORPHINE SULFATE 2 MG/ML SYR IVP PRN ×3 (00:57→23:02)
--- NOTE | 2021-06-27 02:12 | NUR ---
MADE ROUNDS PATIENT SLEEPING RESPIRATION EVEN UNLABORED ON ROOM AIR, NO DISTRESS NOTED. WILL CONTINUE TO MONITOR
[2021-06-27] MEDS: HYDROcodone/APAP 7.5/325 MG 1 TAB PO PRN ×2 (04:32→13:43)
--- NOTE | 2021-06-27 04:34 | NUR ---
PATIENT WOKE UP FROM CHEST AND BACK PAIN 6/10. PRN PAIN MEDS GIVEN PER ORDER. WILL CONTINUE TO MONITOR
[2021-06-27 05:52] LABS: BASOPHILS % (AUTO) 0.1 % (0.0-2.0); HEMATOCRIT 30.2 % (36-52); HEMOGLOBIN 9.4 g/dL (12.0-18.0); LYMPHOCYTES % (AUTO) 5.3 % (20.5-51.1); MEAN CORPUSCULAR HEMOGLOBIN 26 pg (27-31); MEAN CORPUSCULAR HGB CONC 31 g/dL (33-37); MEAN CORPUSCULAR VOLUME 84.2 fL (80-94); MONOCYTES # (AUTO) 1.1 K/uL (0.8-1.0); MONOCYTES % (AUTO) 5.8 % (1.7-9.3); NEUTROPHILS # (AUTO) 17.3 K/uL (1.8-7.7); NEUTROPHILS % (AUTO) 88.8 % (42.2-75.2); PLATELET COUNT (AUTO) 311 K/uL (140-450); RED BLOOD CELL COUNT(AUTO) 3.59 MIL/uL (4.20-6.10); RED CELL DISTRIBUTION WIDTH 18.7 % (11.6-13.7); WHITE BLOOD COUNT (AUTO) 19.5 K/uL (4.8-10.8)
[2021-06-27 06:21] LABS: ANION GAP 15.2 (8-16); CARBON DIOXIDE 25.3 mmol/L (21-32)
[2021-06-27 06:23] LABS: POTASSIUM 6.5 mmol/L (3.5-5.1)
[2021-06-27] MEDS ORDERED: INSULIN REGULAR, HUMAN 100 UNIT/ML VIAL IVP SCH (06:25)
[2021-06-27] MEDS ORDERED: SODIUM ZIRCONIUM CYCLOSILICATE 10 GM POWD.PACK PO SCH (06:25)
[2021-06-27] MEDS ORDERED: CALCIUM CARB 600 MG TAB PO SCH (06:25)
[2021-06-27] MEDS ORDERED: DEXTROSE 50% 50 ML SYR IVP SCH (06:25)
--- NOTE | 2021-06-27 06:32 | NUR ---
PATIENT HAS BEEN SCREENED AND CATEGORIZED MODERATE NUTRITION RISK. PATIENT WILL BE SEEN WITHIN 3-5 DAYS OF ADMISSION. 06/28/21 06/30/[address]
--- NOTE | 2021-06-27 07:08 | NUR ---
ENDORSED PATIENT TO DAY SHIFT NURSE FOR CONTINUITY OF CARE
--- NOTE | 2021-06-27 07:09 | NUR ---
RECEIVED PATIENT FROM BRICK EXTRUDER OPERATOR NURSE FOR CONTINUITY OF CARE. PATIENT IS ON TELE MONITOR. A/A/O X4. RESPIRATORY EVEN AND UNLABORED, ON ROOM AIR. NO SIGN OF DISTRESS NOTED. SKIN WARM, DRY, NON DIAPHORETIC. IV ON RIGHT WRIST 22G, INTACT AND PATENT, SALINE LOCK. PORT-A-CATH ON RIGHT CHEST. PATIENT DENIES ANY PAIN OR DISCOMFORT. ABLE TO MAKE NEED KNOW. PLAN OF CARE DISCUSSED, PATIENT VERBALIZED UNDERSTANDING. CALL LIGHT WITHIN REACH. WILL CONTINUE TO MONITOR.
[2021-06-27] MEDS: COMMUNICATION ORDER MC SCH ×2 (09:00→22:29)
[2021-06-27] MEDS ORDERED: PANTOPRAZOLE 40 MG INJ VIAL IVP SCH (09:00)
[2021-06-27] MEDS: FUROSEMIDE 40 MG/4 ML VIAL IVP SCH (09:34)
[2021-06-27] MEDS: DOCUSATE SODIUM 100 MG GELCAP PO SCH (09:35)
[2021-06-27] MEDS: FAMOTIDINE 20 MG/2 ML VIAL IV SCH ×2 (09:35→22:27)
--- NOTE | 2021-06-27 09:35 | NUR ---
SCHEDULE MEDICATIONS GIVEN WITH EDUCATION. PATIENT VERBALIZED UNDERSTANDING. PATIENT TOLERATED WELL. NO SIGN OF DISTRESS NOTED. CALL LIGHT WITHIN REACH. WILL CONTINUE TO MONITOR.
[2021-06-27] MEDS: AMIODARONE 200 MG TAB PO SCH ×2 (09:36→22:28)
[2021-06-27] MEDS: PATIENTS OWN TABLET PO SCH ×3 (09:36→22:34)
[2021-06-27] MEDS: APIXABAN 2.5 MG TAB PO SCH ×2 (09:37→22:28)
[2021-06-27 11:27] LABS: ANION GAP 12.8 (8-16); CARBON DIOXIDE 26.8 mmol/L (21-32); CREATININE 1.1 mg/dL (0.6-1.3); POTASSIUM 4.6 mmol/L (3.5-5.1)
--- NOTE | 2021-06-27 12:00 | NUR ---
SPOKE WITH EDUCATION TRAINER REGARDING PATIENT DIET. PER PATIENT, HE HAS SORE THROAT WHEN EATING. EDUCATION TRAINER AWARE. WILL ADJUST DIET.
[2021-06-27] MEDS: ONDANSETRON 4 MG/2 ML VIAL IM/IVP PRN (12:32)
--- NOTE | 2021-06-27 12:32 | NUR ---
PATIENT COMPLAINS OF NAUSEA, PRN MEDICATIONS GIVEN WITH EDUCATION. PATIENT VERBALIZED UNDERSTANDING. PATIENT TOLERATED WELL. NO SIGN OF DISTRESS NOTED. CALL LIGHT WITHIN REACH. WILL CONTINUE TO MONITOR. Addendum: 06/27/21 at 1539 by Sam Durbin RN RN PATIENT ALSO COMPLAINS OF GEN PAIN 04/29, PRN MEDICATION GIVEN WITH EDUCATION, PATIENT VERBALIZED UNDERSTANDING.
--- NOTE | 2021-06-27 13:43 | NUR ---
PATIENT COMPLAINS OF GEN PAIN 01/27. PRN MEDICATION GIVEN WITH EDUCATION. PATIENT VERBALIZED UNDERSTANDING. NO SIGN OF DISTRESS NOTED. PRECAUTION IN PLACE. CALL LIGHT WITHIN REACH. WILL CONTINUE TO MONITOR.
--- NOTE | 2021-06-27 14:43 | NUR ---
ROUND CHECK. PATIENT IS SLEEPING, CHEST RISE AND FALL NOTED. NO SIGN OF DISTRESS NOTED. CALL LIGHT WITHIN REACH. WILL CONTINUE TO MONITOR.
[2021-06-27 15:57] LABS: CARBON DIOXIDE 27.8 mmol/L (21-32); CREATININE 1.2 mg/dL (0.6-1.3); POTASSIUM 4.8 mmol/L (3.5-5.1)
--- NOTE | 2021-06-27 17:11 | NUR ---
ROUND CHECK. PATIENT IS SLEEPING, CHEST RISE AND FALL NOTED. AROUSABLE TO VOICE. NO SIGN OF DISTRESS NOTED. CALL LIGHT WITHIN REACH. WILL CONTINUE TO MONITOR.
--- NOTE | 2021-06-27 19:25 | NUR ---
ENDORSED PATIENT TO TIMEKEEPER SUPERVISOR NURSE FOR CONTINUITY OF CARE. PATIENT IS STABLE.
--- NOTE | 2021-06-27 20:00 | NUR ---
RECEIVED PATIENT AWAKE IN BED. PATIENT AOX4. PT ON ROOM AIR. NO SOB AT REST BUT DYSPNEA NOTED ON EXERTION. DIMINISHED LUNG SOUNDS NOTED. NO C/O PAIN AT THIS TIME. PLAN OF CARE DISCUSSED. PT VERBALIZED UNDERSTANDING. BED LOWERED WITH CALL LIGHT WITHIN REACH.
--- NOTE | 2021-06-27 20:10 | NUR ---
PT BROUGHT TO CT
[2021-06-28] VITALS: BP 124/62
[2021-06-28] MEDS: HYDROcodone/APAP 7.5/325 MG 1 TAB PO PRN ×4 (00:51→22:42)
--- NOTE | 2021-06-28 02:33 | NUR ---
PT ASLEEP IN BED AT THIS TIME. NO S/S OF DISTRESS NOTED
[2021-06-28 04:00] VITALS: BP 116/67
[2021-06-28 05:09] LABS: BASOPHILS % (AUTO) 0.1 % (0.0-2.0); HEMATOCRIT 27.7 % (36-52); HEMOGLOBIN 8.8 g/dL (12.0-18.0); LYMPHOCYTES % (AUTO) 4.9 % (20.5-51.1); MEAN CORPUSCULAR HEMOGLOBIN 26 pg (27-31); MEAN CORPUSCULAR HGB CONC 32 g/dL (33-37); MONOCYTES # (AUTO) 1.2 K/uL (0.8-1.0); MONOCYTES % (AUTO) 6.1 % (1.7-9.3); NEUTROPHILS # (AUTO) 18.2 K/uL (1.8-7.7); NEUTROPHILS % (AUTO) 88.9 % (42.2-75.2); PLATELET COUNT (AUTO) 287 K/uL (140-450); RED BLOOD CELL COUNT(AUTO) 3.34 MIL/uL (4.20-6.10); RED CELL DISTRIBUTION WIDTH 18.5 % (11.6-13.7); WHITE BLOOD COUNT (AUTO) 20.5 K/uL (4.8-10.8)
[2021-06-28 05:32] LABS: ANION GAP 10.1 (8-16); CARBON DIOXIDE 28.7 mmol/L (21-32); CREATININE 1.2 mg/dL (0.6-1.3); POTASSIUM 4.8 mmol/L (3.5-5.1)
--- NOTE | 2021-06-28 07:05 | NUR ---
RECEIVED REPORT FROM WATCH CASER NURSE. PT STABLE. BREATHING SYMMETRICAL. NO S/S OF DISTRESS. PT RESTING IN BED. CALL LIGHT IN REACH. ALL SAFETY MEASURES IN PLACE.
--- NOTE | 2021-06-28 07:29 | NUR ---
PT REPORT GIVEN TO AM NURSE. PT ENDORSED IN STABLE CONDITION
[2021-06-28 08:00] VITALS: BP 99/71
[2021-06-28] MEDS: APIXABAN 2.5 MG TAB PO SCH ×2 (08:09→20:43)
[2021-06-28] MEDS: AMIODARONE 200 MG TAB PO SCH ×2 (08:10→20:41)
[2021-06-28] MEDS: DOCUSATE SODIUM 100 MG GELCAP PO SCH (08:10)
[2021-06-28] MEDS: FUROSEMIDE 40 MG/4 ML VIAL IVP SCH (08:11)
[2021-06-28] MEDS: FAMOTIDINE 20 MG/2 ML VIAL IV SCH ×2 (08:11→20:40)
[2021-06-28] MEDS: PATIENTS OWN TABLET PO SCH ×2 (08:13→20:44)
[2021-06-28] MEDS: COMMUNICATION ORDER MC SCH ×3 (08:14→20:44)
--- NOTE | 2021-06-28 09:30 | NUR ---
PT GIVEN ICE PACK AND REPOSITIONED ON LEFT TO REDUCE NAUSEA. PATIENT MEDICATED PER MD ORDERS. PT TOLERATED WELL. EDUCATED ON MEDICATIONS GIVEN. PATIENT VERBALIZED UNDERSTANDING. CALL LIGHT IN REACH. ALL SAFETY MEASURES IN PLACE.
[2021-06-28] MEDS ORDERED: ALBUTEROL SULFATE/IPRATROPIU 3 ML SOL IH PRN (11:05)
--- NOTE | 2021-06-28 11:39 | NUR ---
PATIENT PAIN AND NAUSEA REASSESSED. PT REPORTED REDUCED PAIN AND NAUSEA AFTER THERAPEUTIC MEASURES. CALL LIGHT IN REACH. ALL SAFETY MEASURES IN PLACE.
[2021-06-28 12:00] VITALS: BP 106/78
--- NOTE | 2021-06-28 12:26 | NUR ---
PT EVALUATION ON PT, PT UNABLE TO TOLERATE STANDING. PT NOTED HYPOTENSION DURING EVAL. PT STABLE AND RESTING IN BED. FAMILY AT BEDSIDE. WAITING TO SPEAK WITH MD. CALL LIGHT IN REACH. ALL SAFETY MEASURES IN PLACE.
--- NOTE | 2021-06-28 14:38 | NUR ---
PATIENT RESTING IN BED. FAMILY AT BEDSIDE. NO S/S OF DISTRESS. BREATHING SYMMETRICAL. CALL LIGHT IN REACH. ALL SAFETY MEASURES IN PLACE.
[2021-06-28] MEDS ORDERED: ZOLPIDEM 5 MG TAB PO PRN (15:35)
--- NOTE | 2021-06-28 15:55 | NUR ---
PT RESTING IN BED. FAMILY AT BEDSIDE. SPOKE TO MD. ENSURE ADDED TO DIET TO INCREASE PT NUTRITION. NEW ORDER RECEIVED FOR FACUNDO PER PATIENT REQUEST. CALL LIGHT IN REACH. ALL SAFETY MEASURES IN PLACE.
[2021-06-28 16:00] VITALS: BP 114/70
--- NOTE | 2021-06-28 16:30 | NUR ---
PATIENT STATED PAIN 02/27. FAMILY AT BEDSIDE. PATIENT MEDICATED PER MD ORDER. EDUCATED ON MEDICATIONS GIVEN. PT VERBALIZED UNDERSTANDING. WILL REASSESS. PATIENT GIVEN ENSURE PER PATIENT REQUEST. PT REFUSED STATING THEY DID NOT WANT CHOCOLATE FLAVOR. CALL LIGHT IN REACH. ALL SAFETY MEASURES IN PLACE.
--- NOTE | 2021-06-28 19:58 | NUR ---
ENDORSED PATIENT TO CAPSULE FILLER NURSE. PT STABLE. NO S/S OF DISTRESS. BREATHING SYMMETRICAL. CALL LIGHT IN REACH. ALL SAFETY MEASURES IN PLACE.
[2021-06-28 20:00] VITALS: BP 121/55
--- NOTE | 2021-06-28 20:00 | NUR ---
RECEIVED REPORT AT BEDSIDE.PT IA AWAKE,ALERT AND ORIENTED.RESP.UNLABORED IN RA.LUNGS CLEAR.TELE.IS ON AND SHOWING SR.SL PATENT.CALL LIGHT WITHIN REACH.WILL CONTINUE MONITORING.VS STABLE.
[2021-06-28] MEDS: ONDANSETRON 4 MG/2 ML VIAL IM/IVP PRN (22:41)
[2021-06-29] VITALS: BP 119/60
--- NOTE | 2021-06-29 00:52 | NUR ---
HAD C/O PAIN EARLIER PO MED GIVEN.NO C/O PAIN NOW.ALSO HAD VOMITING ZOFRAN IV GIVEN NO N/V NOW.HR IS SR.VS STABLE. CALL LIGHT IN REACH.
[2021-06-29] MEDS ORDERED: HYDROcodone/APAP 7.5/325 MG 1 TAB PO SCH (02:25)
[2021-06-29 04:00] VITALS: BP 120/61
--- NOTE | 2021-06-29 04:10 | NUR ---
AFTER GAVE HIM NORCO HE SLEPT WELL.HR IS SR.VS STABLE.NO DISTRESS NOTED AT PRESENT TIME.
[2021-06-29 05:29] LABS: ANION GAP 12.2 (8-16); CARBON DIOXIDE 30.6 mmol/L (21-32); POTASSIUM 4.8 mmol/L (3.5-5.1)
[2021-06-29 05:33] LABS: EOSINOPHILS % (AUTO) 0.1 % (0.0-4.0); HEMATOCRIT 27.1 % (36-52); HEMOGLOBIN 8.6 g/dL (12.0-18.0); LYMPHOCYTES # (AUTO) 0.9 K/uL (2.0-11.5); LYMPHOCYTES % (AUTO) 5.3 % (20.5-51.1); MEAN CORPUSCULAR HEMOGLOBIN 27 pg (27-31); MEAN CORPUSCULAR HGB CONC 32 g/dL (33-37); MEAN CORPUSCULAR VOLUME 83.1 fL (80-94); MONOCYTES # (AUTO) 1.2 K/uL (0.8-1.0); MONOCYTES % (AUTO) 6.9 % (1.7-9.3); NEUTROPHILS # (AUTO) 15.4 K/uL (1.8-7.7); NEUTROPHILS % (AUTO) 87.7 % (42.2-75.2); PLATELET COUNT (AUTO) 263 K/uL (140-450); RED BLOOD CELL COUNT(AUTO) 3.26 MIL/uL (4.20-6.10); RED CELL DISTRIBUTION WIDTH 18.4 % (11.6-13.7); WHITE BLOOD COUNT (AUTO) 17.6 K/uL (4.8-10.8)
--- NOTE | 2021-06-29 07:04 | NUR ---
HE STILL SLEEPING.NO DISTRESS NOTED.
--- NOTE | 2021-06-29 07:08 | NUR ---
RECEIVED REPORT FROM NIGHT NURSE PATIENT IS SLEEPING, ON ROOM AIR AND SINUS RHYTHM, SKIN INTACT, IV ON RIGHT WRIST G22 SALINE LOCK, FOR SWALLOW EVAL, PAIN MEDICATIONS GIVEN AT 0228. SAFETY MEASURES IN PLACE AND CALL LIGHT WITHIN REACH. WILL CONTINUE TO MONITOR.
[2021-06-29 08:00] VITALS: BP 113/74
[2021-06-29] MEDS: AMIODARONE 200 MG TAB PO SCH ×2 (08:36→21:11)
[2021-06-29] MEDS: DOCUSATE SODIUM 100 MG GELCAP PO SCH (08:36)
[2021-06-29] MEDS: FUROSEMIDE 40 MG/4 ML VIAL IVP SCH (08:37)
[2021-06-29] MEDS: APIXABAN 2.5 MG TAB PO SCH ×2 (08:37→21:11)
[2021-06-29] MEDS: PATIENTS OWN TABLET PO SCH ×2 (08:38→21:12)
[2021-06-29] MEDS: FAMOTIDINE 20 MG/2 ML VIAL IV SCH ×2 (08:38→21:10)
--- NOTE | 2021-06-29 08:48 | NUR ---
ADMINISTERED SCHEDULED MEDICATION CHECK VITAL SIGNS PRIOR TO MEDICATION BP 113/74 [place] 86 PT FEELS PAIN IN THE RIGHT ARM AND COLD. ABLE TO TOLERATE MEDICATIONS AND PT OEN CHEMO MEDICATION. WILL CONTINUE TO MONITOR.
[2021-06-29 12:00] VITALS: BP 126/70
--- NOTE | 2021-06-29 12:00 | NUR ---
MADE ROUNDS CHECK VITAL SIGNS, PT VERA VISITED. NO DISTRESS NOTED.
--- NOTE | 2021-06-29 14:27 | NUR ---
PT DENIES ANY PAIN AT THIS TIME, PT IS RESTING. WILL CONTINUE TO MONITOR.
[2021-06-29] MEDS: HYDROcodone/APAP 7.5/325 MG 1 TAB PO PRN (14:59)
--- NOTE | 2021-06-29 14:59 | NUR ---
PATIENT COMPLAINS OF BACK PIN 05/30 CHECK VITAL SIGNS BP 116/73 [place] 86. WILL CONTINUE TO MONITOR.
[2021-06-29 16:00] VITALS: BP 105/68
--- NOTE | 2021-06-29 19:16 | NUR ---
ENDORSED TO NIGHT NURSE FOR CONTINUITY OF CARE. PT STABLE
--- NOTE | 2021-06-29 19:45 | NUR ---
PT IS ON BED AWAKE,ALERT AND ORIENTED.RESP UNLABORED IN RA.LUNGS CLEAR.SL PATENT IN RT.WRIST W/O REDNESS OR EDEMA AT SITE.TELE IS ON AND SHOWING SR.CALL LIGHT IN REACH.NO C/O PAIN NOW.WILL CONT.MONITORING.
[2021-06-29 20:00] VITALS: BP 91/65
[2021-06-29] MEDS: ONDANSETRON 4 MG/2 ML VIAL IM/IVP PRN (21:12)
[2021-06-30] VITALS: BP 91/61
[2021-06-30] MEDS: HYDROcodone/APAP 7.5/325 MG 1 TAB PO PRN ×3 (00:43→21:19)
--- NOTE | 2021-06-30 01:13 | NUR ---
HAD C/O CONSTIPATION.COLACE PO GIVEN EARLIER.NO BM YET.ALSO HAD C/O PAIN PO MED GIVEN.WILL REASSESS LATER.HR IS SR.VS STABLE.
[2021-06-30 04:00] VITALS: BP 95/62
[2021-06-30 06:02] LABS: BASOPHILS % (AUTO) 0.1 % (0.0-2.0); EOSINOPHILS % (AUTO) 0.1 % (0.0-4.0); LYMPHOCYTES % (AUTO) 6.9 % (20.5-51.1); MEAN CORPUSCULAR HEMOGLOBIN 27 pg (27-31); MEAN CORPUSCULAR HGB CONC 32 g/dL (33-37); MEAN CORPUSCULAR VOLUME 83.9 fL (80-94); MONOCYTES # (AUTO) 0.8 K/uL (0.8-1.0); NEUTROPHILS # (AUTO) 12.2 K/uL (1.8-7.7); NEUTROPHILS % (AUTO) 86.9 % (42.2-75.2); PLATELET COUNT (AUTO) 253 K/uL (140-450); RED BLOOD CELL COUNT(AUTO) 2.98 MIL/uL (4.20-6.10); RED CELL DISTRIBUTION WIDTH 18.4 % (11.6-13.7)
[2021-06-30 06:17] LABS: ANION GAP 9.9 (8-16); CARBON DIOXIDE 31.6 mmol/L (21-32); POTASSIUM 4.5 mmol/L (3.5-5.1)
[2021-06-30] MEDS: ONDANSETRON 4 MG/2 ML VIAL IM/IVP PRN (06:27)
--- NOTE | 2021-06-30 06:29 | NUR ---
HAD VOMITING.ZOFRAN IVP GIVEN.HR IS SR.PRUNE JUICE GIVEN FOR CONSTIPATION STILL NO BM.HAS C/O PAIN ALSO WILL GIVE MED .
--- NOTE | 2021-06-30 07:25 | NUR ---
endorsed to am rn in stable condition.
--- NOTE | 2021-06-30 07:40 | NUR ---
RECEIVED REPORT FROM TIP CEMENTER AT BEDSIDE FOR CONTINUITY OF CARE. INITIAL ASSESSMENT INITIATED. PATIENT ALERT AWAKE ORIENTED X4, ASLEEP BUT AROUSABLE. DENIES CHEST PAIN AND ABDOMINAL PAIN AT THIS TIME. WITH HEPLOCK ON THE RIGHT HAND DRY AND INTACT. ON MONITOR SHOWS SR. CALL LIGHT WITHIN REACH, NEEDS ATTENDED. WILL CONTINUE TO MONITOR.
[2021-06-30 08:00] VITALS: BP 102/64
[2021-06-30] MEDS: DOCUSATE SODIUM 100 MG GELCAP PO SCH ×2 (09:02→21:15)
[2021-06-30] MEDS: AMIODARONE 200 MG TAB PO SCH ×2 (09:02→21:16)
[2021-06-30] MEDS: FAMOTIDINE 20 MG/2 ML VIAL IV SCH ×2 (09:03→21:15)
[2021-06-30] MEDS: FUROSEMIDE 40 MG/4 ML VIAL IVP SCH (09:03)
[2021-06-30] MEDS: APIXABAN 2.5 MG TAB PO SCH ×2 (09:10→21:17)
[2021-06-30] MEDS: PATIENTS OWN TABLET PO SCH ×2 (09:10→21:28)
[2021-06-30 12:00] VITALS: BP 106/62
[2021-06-30] MEDS ORDERED: POLYETHYLENE GLYCOL 17 GM/PKT PO SCH (14:15)
[2021-06-30] MEDS ORDERED: SIMETHICONE 80 MG TAB.CHEW PO SCH (14:15)
--- NOTE | 2021-06-30 14:27 | NUR ---
06/30/21 RD INITIAL ASSESSMENT COMPLETED PLEASE REFER TO NUTRITION ASSESSMENT UNDER CARE ACTIVITY FOR ESTIMATED NUTRITIONAL NEEDS. 1. PENDING SWALLOW EVALUATION RECOMMENDATIONS 2. CURRENTLY ON FULL LIQUID DIET WITH ENSURE BID 3. RD TO FOLLOW-UP 2-3 DAYS, HIGH RISK AMBER MATOS, RD
--- NOTE | 2021-06-30 14:50 | NUR ---
PT WAS SEEN FOR DYSPHAGIA. PT WAS ABLE TO SAFELY SWALLOW PUREE DIET WITH THIN LIQUID. RECOMMENDATION PUREE DIET WITH THIN LIQUID
--- NOTE | 2021-06-30 15:00 | NUR ---
PATIENT HAD SWALLOW EVAL AND PUREED DIET. RECOMMENDED TO HAVE ESOPHAGRAM X-RAY.
--- NOTE | 2021-06-30 15:28 | NUR ---
DC [age] YRS OLD MALE PATIENT WAS ADMITTED FROM HOME WITH A DX OF INTRACTABLE PAIN L MALIGNANT PLEURAL EFFUSION. PT HAS A HX OF SMALL CELL LUNG CA S/P CHEMOTHERAPY TREATMENT AT [facility] WITH DR VILLANUEVA. AND A-INESSA . CXR AND CT CHEST SHOWED LEFT HEMITHORAX SIGNIFICANTLY ENLARGED. ADMINISTERED PAIN MEDS AND CONTINUED HOME MEDS. CONSULTED WITH PULMO. DC PLAN TO GO HOME WHEN STABLE CM TO FOLLOW
[2021-06-30 16:00] VITALS: BP 99/66
--- NOTE | 2021-06-30 17:18 | NUR ---
PATIENT RESTING IN BED, NOT IN ANY DISTRESS NOTED. WILL CONTINUE TO MONITOR.
--- NOTE | 2021-06-30 19:30 | NUR ---
RECEIVED BEDSIDE ENDORSEMENT FROM AM SHIFT RN. A&O X4, SALINE LOCK RT WRIST 22G, SKIN IS INTACT, NO SIGNS OF DISTRESS, SAFETY MEASURES IN PLACE, ON ROOM AIR, CALL LIGHT WITHIN REACH, PT STABLE AT THIS MOMENT, WILL CONTINUE TO MONITOR.
[2021-06-30 20:00] VITALS: BP 117/68
[2021-06-30] MEDS ORDERED: ZOLPIDEM 5 MG TAB PO SCH (21:00)
--- NOTE | 2021-06-30 21:19 | NUR ---
ADMINISTERED SCHEDULED MEDICATIONS, PT STATED PAIN, GAVE NORCO 6/10 PAIN LEVEL. PT STABLE, WILL CONTINUE TO MONITOR.
--- NOTE | 2021-06-30 22:19 | NUR ---
REASSESSED PAIN LEVEL FROM GIVING NORCO AN HOUR AGO. PT IS SLEEPING.
--- NOTE | 2021-07-01 00:10 | NUR ---
PATIENT IS ASLEEP, NO SIGNS OF DISTRESS, SAFETY MEASURES IN PLACE, STABLE, WILL CONTINUE TO MONITOR.
[2021-07-01] MEDS: ONDANSETRON 4 MG/2 ML VIAL IM/IVP PRN (01:45)
--- NOTE | 2021-07-01 01:45 | NUR ---
GAVE PT PRN ZOFRAN. PT STATED HE FELT NAUSEATED. PT STABLE, WILL CONTINUE TO MONITOR.
--- NOTE | 2021-07-01 04:00 | NUR ---
0400 vital signs BP: 93/66, HR: 88, RR: 18, TEMP: 97.4, 02 SAT: 97%, PT STABLE, NO SIGNS OF DISTRESS. WILL CONTINUE TO MONITOR
--- NOTE | 2021-07-01 04:38 | NUR ---
RESPIRATORY ASSESSMENT CHARTED IN ERROR AT ABOVE TIME 0438, CORRECT ASSESSMENT CHARTED AT 442.
[2021-07-01 05:58] LABS: ANION GAP 9.4 (8-16); CARBON DIOXIDE 32.5 mmol/L (21-32); POTASSIUM 4.9 mmol/L (3.5-5.1)
[2021-07-01 06:16] LABS: EOSINOPHILS % (AUTO) 0.1 % (0.0-4.0); HEMATOCRIT 24.3 % (36-52); HEMOGLOBIN 7.6 g/dL (12.0-18.0); LYMPHOCYTES # (AUTO) 0.8 K/uL (2.0-11.5); LYMPHOCYTES % (AUTO) 5.6 % (20.5-51.1); MEAN CORPUSCULAR HEMOGLOBIN 26 pg (27-31); MEAN CORPUSCULAR HGB CONC 31 g/dL (33-37); MEAN CORPUSCULAR VOLUME 82.3 fL (80-94); MONOCYTES # (AUTO) 0.8 K/uL (0.8-1.0); NEUTROPHILS # (AUTO) 11.9 K/uL (1.8-7.7); NEUTROPHILS % (AUTO) 88.3 % (42.2-75.2); PLATELET COUNT (AUTO) 232 K/uL (140-450); RED BLOOD CELL COUNT(AUTO) 2.95 MIL/uL (4.20-6.10); RED CELL DISTRIBUTION WIDTH 18.3 % (11.6-13.7); WHITE BLOOD COUNT (AUTO) 13.5 K/uL (4.8-10.8)
--- NOTE | 2021-07-01 07:35 | NUR ---
PASSED ON BEDSIDE ENDORSEMENT TO AM SHIFT RN. PT STABLE
[2021-07-01 08:00] VITALS: BP 90/68
[2021-07-01] MEDS ORDERED: POLYETHYLENE GLYCOL 17 GM/PKT PO SCH (09:00)
[2021-07-01] MEDS ORDERED: POLY17PD46 PO (09:04)
[2021-07-01] MEDS ORDERED: ZOLP5TAB1 PO (09:04)
[2021-07-01] MEDS ORDERED: DOCU-299 PO (09:04)
[2021-07-01] MEDS ORDERED: ALBU3SOL83 IH (09:04)
[2021-07-01] MEDS: DOCUSATE SODIUM 100 MG GELCAP PO SCH (09:44)
[2021-07-01] MEDS: AMIODARONE 200 MG TAB PO SCH (09:44)
[2021-07-01] MEDS: APIXABAN 2.5 MG TAB PO SCH (09:46)
[2021-07-01] MEDS: FAMOTIDINE 20 MG/2 ML VIAL IV SCH (09:47)
[2021-07-01] MEDS: FUROSEMIDE 40 MG/4 ML VIAL IVP SCH (09:47)
[2021-07-01] MEDS: HYDROcodone/APAP 7.5/325 MG 1 TAB PO PRN ×2 (09:53→17:29)
[2021-07-01] MEDS: PATIENTS OWN TABLET PO SCH (09:56)
--- NOTE | 2021-07-01 11:31 | NUR ---
Patient awake, alert and oriented. Able to verbalize needs and had complained of abdominal pain. Patient medicated and noted to be resting in bed quietly.
[2021-07-01 11:33] VITALS: BP 90/68
[2021-07-01] MEDS ORDERED: ACET-9529 PO ×2 (14:02)
== END 2021-07-01 17:54 | disposition home health service (06) | DRG 136 ==
LOC: MED 05:07 → MTU 09:15 → MED 09:15 → MMU 15:16
PROVIDERS: ADMIT Hospitalist; ATTEND Hospitalist
DX: C34.92 Malignant neoplasm of unspecified part of left bronchus or lung (principal); E43 Unspecified severe protein-calorie malnutrition; R65.10 Systemic inflammatory response syndrome (SIRS) of non-infectious origin without acute organ dysfunction; J91.0 Malignant pleural effusion; E86.0 Dehydration; E87.1 Hypo-osmolality and hyponatremia; D64.9 Anemia, unspecified; D49.89 Neoplasm of unspecified behavior of other specified sites; I48.91 Unspecified atrial fibrillation; G89.3 Neoplasm related pain (acute) (chronic); J98.11 Atelectasis; R13.10 Dysphagia, unspecified; K59.00 Constipation, unspecified; R10.9 Unspecified abdominal pain; K57.30 Diverticulosis of large intestine without perforation or abscess without bleeding; G47.00 Insomnia, unspecified; Z68.23 Body mass index [BMI] 23.0-23.9, adult; Z91.041 Radiographic dye allergy status; Z87.01 Personal history of pneumonia (recurrent); Z79.01 Long term (current) use of anticoagulants; Z79.899 Other long term (current) drug therapy; Z79.52 Long term (current) use of systemic steroids; Z92.21 Personal history of antineoplastic chemotherapy
CPT/HCPCS: 36415; 70490; 71045; 71250; 80048; 80053; 81001; 82550; 82948; 83605; 83735; 83880; 84100; 84484; 85025; 85610; 85730; 87040; 87081; 87086; 92526; 93005; 96374; 96375; 96376; 97110; 97116; 97163-GP; 97530; 99285; J0696; J1815; J1940; J2270; J2405; J3490; J7060; Q0092